=== PATIENT | male | born 1950 | race Caucasian/White ===

== ENCOUNTER → 2018-11-07 | Outpatient (CLI) | payer MEDICARE, OTHER ==
--- NOTE | 2018-11-08 09:22 | REP ---
REASON: Pain after trauma two days ago. COMPARISON: None. 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 The joint space is asymmetrically narrowed and there is subchondral sclerosis. There is no acute fracture. There is a small plantar and a moderate-sized retrocalcaneal heel spur. IMPRESSION: Chronic changes, as described above. Electronically Signed by Dalton Brewster DO 11/08/2018 11:27 A
== END ==
LOC: M LRY 15:16
PROVIDERS: ATTEND Nurse Practitioner Family
DX: M25.774 Osteophyte, right foot (principal)
CPT/HCPCS: 73630; G0463